=== PATIENT | female | born 1940 | race Caucasian/White ===

== ENCOUNTER → 2016-11-06 | Outpatient (CLI) | payer MEDICARE ==
[2016-11-06 13:35] LABS: BUN 16 mg/dL (7-18)
[2016-11-06 13:36] LABS: GFR (ESTIMATED) 70 ML/MIN (59-)
[2016-11-06 13:40] LABS: HEMOGLOBIN 13.6 g/dL (12.2-16.2); LYMPH # 2.2 K/mm3 (0.7-4.5); LYMPH % 37.5 % (10-50.0)
== END ==
LOC: CARL-LAB 07:08
PROVIDERS: Emergency Medicine
DX: I25.10 Atherosclerotic heart disease of native coronary artery without angina pectoris (principal); I10 Essential (primary) hypertension; E78.00 Pure hypercholesterolemia, unspecified